=== PATIENT | female | born 1940 | race Two or more races ===

== ENCOUNTER 2018-12-20 14:38 | Outpatient (CLI) | payer MEDICAID, MEDICARE ==
--- NOTE | 2018-12-20 18:30 | Consultation ---
DATE OF CONSULTATION: 12/20/2018 CONSULTING PHYSICIAN: Nasir Mcconnell M.D. CHIEF COMPLAINT: Referral for screening colonoscopy. HISTORY OF PRESENT ILLNESS: This is a 78-year-old female with past medical history of diabetes. No prior history of colonoscopy for last 10 years. She was referred to us for evaluation of colonoscopy. The patient also complained of severe constipation. No nausea. No vomiting. No dysphagia. No odynophagia. No melena. No hematochezia. No significant weight loss. PAST MEDICAL HISTORY: 1. Diabetes. 2. Chronic cough. 3. Kidney stones PAST SURGICAL HISTORY: None. MEDICATIONS: . ALLERGIES: No known drug allergies. FAMILY HISTORY: No family history of GI malignancies. SOCIAL HISTORY: The patient denies any tobacco, alcohol, or drug abuse. REVIEW OF SYSTEMS: A 10-point review of systems was performed and pertinent positives in HPI. PHYSICAL EXAMINATION: GENERAL: This is a well-developed female. HEENT: Normocephalic and atraumatic. Sclerae anicteric. NECK: Supple. No evidence of obvious lymphadenopathy. CARDIOVASCULAR: Regular rate and rhythm. Plus S1 and S2. No obvious murmur. LUNGS: Clear to auscultation bilaterally. ABDOMEN: Positive bowel sounds. Soft and nontender. No rebound. No guarding. No peritoneal sign. EXTREMITIES: No cyanosis. No clubbing. No edema. ASSESSMENT AND PLAN: This is a 78-year-old female with chronic constipation, was given Linzess 145 mcg p.o. daily. The patient was told to take it 30 minutes before breakfast every day and come back for followup. Also, will be having colonoscopy, she is qualified, given 78 and no colonoscopy for last 10 years. The patient was given instruction and for colonoscopy, pending authorization. Nasir Mcconnell M.D. DR: ALE JOB#: [id number] CC:
== END 2018-12-20 16:38 | disposition home or self-care (01) ==
LOC: PAN 14:38
DX: K59.00 Constipation, unspecified (principal); E11.9 Type 2 diabetes mellitus without complications; R05 Cough; Z86.73 Personal history of transient ischemic attack (TIA), and cerebral infarction without residual deficits
CPT/HCPCS: 99202